=== PATIENT | female | born 1960 | race Caucasian/White ===

== ENCOUNTER 2016-06-01 16:02 | Emergency (ER) | payer BC, OTHER ==
[~2016-06-01] VITALS: Ht 154.9 cm; Wt 82.2 kg
[~2016-06-01 16:02] MED LIST: CIPR-255 PO; FLUO20CA35 PO
[2016-06-01 16:05] VITALS: TEMP 36.3; Ht 154.9 cm; Wt 82.2 kg
[2016-06-01] MEDS ORDERED: MoRPHine SULFATE 10 MG/ML CARP/VIAL IM STA (16:26)
[2016-06-01] MEDS ORDERED: ONDANSETRON 4MG OD TAB PO ONE (16:30)
[2016-06-01] MEDS ORDERED: DEXAMETHASONE SOD INJ 10 MG/ML VIAL IM ONE (16:30)
[2016-06-01] MEDS ORDERED: MoRPHine SULFATE 2 MG/ML CARP ONE (16:35)
[2016-06-01] MEDS ORDERED: MoRPHine SULFATE 4 MG/ML 1 ML CARP\\VIAL ONE (16:36)
[2016-06-01] MEDS ORDERED: TRAM-10 PO (16:38)
--- NOTE | 2016-06-01 16:39 | EMERGENCY ROOM VISIT NOTE ---
History First contact with patient: 16:15 Chief Complaint: HIP PAIN Stated Complaint: SYACTIC, EXTREME PAIN L/R HIP/UPPER BACK History of Present Illness The patient is a 56 year old female who presents to the Emergency Room with complaints of low back pain. The patient has had ongoing low back pain and sciatica. The patient states that it has been ongoing. She has seen Dr. Fierro and had an epidural injection which did not help. She was to schedule a second injection but could not because of the bad weather. The patient states that she does not have any true change in her symptoms but the pain persists and is affecting her activities of daily living. She has had tramadol which is not helping. The patient had an MRI approximately 2.5 months ago and revealed stenosis and DJD. The patient has some numbness in the left leg and states that is not changed. She rates her discomfort a 9/10. She has not had any loss of bowel or bladder control. She has not had any weakness in her legs. Review of Systems A 10 system review of systems was completed with positives and pertinent negatives listed in the HPI. Past Medical/Surgical History Medical Problems: (1) Depression (2) Pneumonia Surgical Problems: (1) H/O gastric bypass Family History Cancer Diabetes mellitus Gallbladder disease Heart disease Hypertension Kidney disease Kidney stones Lung disease Social History Smoking Status: Never Smoker Alcohol Use: other Marital Status: Housing Status: lives with significant other Occupation Status: unemployed Current/Historical Medications Scheduled Fish Oil ([place]-3), 3 CAPSULES PO DAILY Fluoxetine (Prozac), 20 MG PO DAILY Levothyroxine Sodium (Levothyroxine Sodium), 50 MCG PO DAILY Pediatric Multiple Vitamin W/ (Flintstones Chewable), 2 TABS PO DAILY Prednisone (Prednisone), 0 PO DAILY Topiramate (Topamax), 50 MG PO BID Scheduled PRN Acetaminophen (Tylenol), 1,000 MG PO Q6 PRN for Pain Clonazepam (Clonazepam), 0.5 MG PO BID PRN for Anxiety Oxycodone/Acetaminophen 5MG/325MG (Percocet 5MG/325MG), 1-2 TABS PO Q4 PRN for Pain Tramadol (Ultram), 50 MG PO Q6H PRN for Pain Allergies Coded Allergies: No Known Allergies (Verified , 06/01/16) Physical Exam Vital Signs Date Time Temp Pulse Resp B/P Pulse Ox O2 Delivery O2 Flow Rate FiO2 06/01/16 17:16 65 16 118/76 97 06/01/16 16:59 65 16 118/76 97 Room Air 06/01/16 16:05 36.3 70 17 121/72 99 Room Air Physical Exam VITALS: Vitals are noted on the nurse's note and reviewed by myself. Vital signs stable. Patient is afebrile. GENERAL: This is a 56-year-old female, in no acute distress, nondiaphoretic, well-developed well-nourished. SKIN: The skin was without rashes, erythema, edema, or bruising. There is no tenting of the skin. Capillary reflex less than 2 seconds. HEAD: Normocephalic atraumatic. EARS: External ears are normal in appearance. EYES: Pupils equal round and reactive to light and accommodation. Conjunctivae without injection, sclerae without icterus. Extraocular movements intact. NOSE: Patent, turbinates without inflammation or discharge. MOUTH: Mucous membranes moist. Tonsils are not enlarged. Pharynx without erythema or exudate. Uvula midline. Airway patent. Tongue does not deviate. NECK: Supple without nuchal rigidity. Cervical spine is nontender. No JVD. HEART: Regular rate and rhythm without murmurs gallops or rubs. LUNGS: Clear to auscultation bilaterally without wheezes, rales or rhonchi. No retractions or accessory muscle use. ABDOMEN: Positive bowel sounds x 4. Soft, nontender, without masses or organomegaly. Moreno sign negative. MUSCULOSKELETAL: No muscle atrophy, erythema, or edema noted. Full range of motion in all extremities. No tenderness to palpation. Normal gait. Strength 5/5 throughout. NEURO: Patient was alert and oriented to person place and time. Normal sensation to light and sharp touch. Deep tendon reflexes 2+ throughout. No focal neurological deficits. Medical Decision & Procedures Medications Administered Medications (Trade) Dose Ordered Sig/Krystle Route Start Time Stop Time Status Last Admin Dose Admin Dexamethasone Sodium Phosphate (Decadron Inj) 10 mg NOW ONCE IM 06/01/16 16:30 06/01/16 16:38 DC 06/01/16 16:41 10 MG Morphine Sulfate (MoRPHine SULFATE INJ) 6 mg NOW STAT IM 06/01/16 16:26 06/01/16 16:28 DC 06/01/16 16:42 6 MG Ondansetron HCl (Zofran Odt) 4 mg ONE ONCE PO 06/01/16 16:30 06/01/16 16:38 DC 06/01/16 16:40 4 MG ED Course The patient was seen and examined. Previous visits were reviewed. The patient does not have a fever. The patient has had ongoing low back pain with radiation to the left leg. She has had MRIs. She has had physical therapy and seen Dr. fierro. The patient's pain persists and she has taken tramadol without relief. The patient states she has never been trialed on prednisone. The patient was given 10 mg IM Decadron and 4 mg IM morphine with improvement in her pain. She'll be given a prescription for pain medication and prednisone. She should contact Dr. fierro office first thing in the morning to schedule a follow-up appointment. She should return to the ER sooner with any worsening symptoms. Medical Decision DIFFERENTIAL DIAGNOSIS: Lumbar strain, degenerative disc disease, spondylolisthesis, herniated disc, spinal stenosis, osteoporosis, fracture, cauda equina syndrome, neoplasm, infection, inflammatory arthritis, among others. [place] Drug Monitoring Program Search Results: patient reviewed within database, no issues identified Impression Primary Impression: Back pain with sciatica Departure Information Dispostion Home / Self-Care Condition GOOD Prescriptions Oxycodone/Acetaminophen 5MG/325MG (PERCOCET 5MG/325MG) Tab 1-2 TABS PO Q4 Y for Pain, #30 TAB For Initial Treatment Prov: Norma Olvera PA-C 06/01/16 Prednisone (Prednisone) 20 Mg Tab 0 PO DAILY, #18 TAB 3 DAILY FOR 3 DAYS, THEN 2 DAILY FOR 3 DAYS, THEN 1 DAILY FOR 3 DAYS. Prov: Norma Olvera PA-C 06/01/16 Referrals Servando Galvan M.D. (PCP) Laz Fierro D.O. Patient Instructions Back Pain - [facility] Additional Instructions Prednisone as prescribed, until finished Percocet 1-2 tablet every 4-6 hours as needed for worse pain. No driving or alcohol use with Percocet and do not take with Tylenol. Contact Dr. fierro first thing in the morning to schedule a follow-up appointment for further evaluation and management Return with any worsening symptoms
[2016-06-01] MEDS ORDERED: OXYC-57 PO (16:55)
[2016-06-01] MEDS ORDERED: PRED20TA PO (16:55)
[2016-06-01 17:16] VITALS: BP 118/76; PULSE 65; O2SAT 97
[2016-08-28] MEDS ORDERED: FLUO40CA8 PO (18:50)
[2016-08-28] MEDS ORDERED: OXYC1TAB3 PO (19:05)
[2016-08-28] MEDS ORDERED: METH4PAK PO (19:05)
[2016-11-02] MEDS ORDERED: KLN5X PO (04:25)
[2016-11-02] MEDS ORDERED: TPM/50 PO (04:25)
[2016-11-02] MEDS ORDERED: ACET-1256 PO (04:26)
[2016-11-02] MEDS ORDERED: PEDICHW50 PO (16:38)
[2016-11-02] MEDS ORDERED: LEVO50TA6 PO (16:38)
== END 2016-06-01 17:16 | disposition home or self-care (01) ==
LOC: C.EDB 16:04 → C.EDD 17:16
DX: M53.3 Sacrococcygeal disorders, not elsewhere classified (principal); F32.9 Major depressive disorder, single episode, unspecified; Z98.84 Bariatric surgery status; Z79.899 Other long term (current) drug therapy; Z80.9 Family history of malignant neoplasm, unspecified; Z83.3 Family history of diabetes mellitus; Z83.79 Family history of other diseases of the digestive system; Z82.49 Family history of ischemic heart disease and other diseases of the circulatory system; Z84.1 Family history of disorders of kidney and ureter

== ENCOUNTER 2016-11-02 20:23 | Emergency (ER) | payer BC ==
[~2016-11-02] VITALS: Ht 154.9 cm; Wt 80.0 kg
[~2016-11-02 20:23] MED LIST changes: +ACET-1256 PO; -CIPR-255 PO; -FLUO20CA35 PO; +FLUO40CA8 PO; +KLN5X PO; +LEVO50TA6 PO; +OXYC1TAB3 PO; +PEDICHW50 PO; +TPM/50 PO; +TRAM-10 PO
[2016-11-02 20:26] VITALS: Ht 154.9 cm; Wt 80.0 kg
[2016-11-02] MEDS ORDERED: ONDANSETRON INJ 2 MG/ML 2 ML VIAL IV STA (21:03)
--- NOTE | 2016-11-02 21:03 | EMERGENCY ROOM VISIT NOTE ---
History First contact with patient: 20:42 Chief Complaint: CHEST PAIN Stated Complaint: CHEST PAIN, LEFT ARM PAIN, VOMITING Nursing Triage Summary: pt to the ED with c/o chest pain that goes to her back and left arm with n/v SOB and numbness in her face History of Present Illness The patient is a 56 year old female who presents to the Emergency Room with complaints of a one day history of chest pain. Patient was at home yesterday at approximately 12 PM when she was doing work in her garden doing some heavy lifting and felt some instant chest pain. She says the chest pain was 10 out of 10, over the left side of the chest lateral to the sternum the over the superomedial aspect of the breast, and radiated to her back. She states that she was able to go to work the rest of the day but continued to feel fatigued, nauseous, had a migraine, and did not feel like herself throughout the day. 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 Immediately upon arriving at work she began to feel worse with continued chest pain, and now it continues to be 10/10, sharp pain, radiating to the back. She also complains of left arm numbness and tingling. She states that the pain is worse with exertion and is worse when sitting upright. The patient is concerned because she has a family history of cardiac disease in both her mother and sister. She denies any fever, chills, vomiting, or abdominal pain. Review of Systems See HPI for pertinent positives and negatives. A total of ten systems were reviewed and were otherwise negative. Past Medical/Surgical History Medical Problems: (1) Depression (2) Pneumonia Surgical Problems: (1) H/O gastric bypass Family History Cancer Diabetes mellitus Gallbladder disease Heart disease Hypertension Kidney disease Kidney stones Lung disease Social History Smoking Status: Never Smoker Alcohol Use: other Marital Status: Housing Status: lives with significant other Occupation Status: unemployed Current/Historical Medications Scheduled Fish Oil ([place]-3), 3 CAPSULES PO DAILY Fluoxetine Hcl (Prozac), 40 MG PO DAILY Levothyroxine Sodium (Levothyroxine Sodium), 50 MCG PO DAILY Pediatric Multiple Vitamin W/ (Flintstones Chewable), 2 TABS PO DAILY Topiramate (Topamax), 50 MG PO BID Scheduled PRN Acetaminophen (Tylenol), 1,000 MG PO Q6H PRN for Pain Clonazepam (Clonazepam), 0.5 MG PO BID PRN for Anxiety Tramadol HCl (Tramadol HCl), 50 MG PO Q6H PRN for Pain Allergies Coded Allergies: No Known Allergies (Verified , 08/28/16) Physical Exam Vital Signs Date Time Temp Pulse Resp B/P (MAP) Pulse Ox O2 Delivery O2 Flow Rate FiO2 11/02/16 21:20 59 18 122/76 96 Room Air 11/02/16 20:48 70 11/02/16 20:26 36.4 74 16 156/95 95 Room Air Physical Exam GENERAL: Awake, alert, well-appearing, in mild distress HENT: Normocephalic, atraumatic. Oropharynx unremarkable. EYES: Normal conjunctiva. Sclera non-icteric. NECK: Supple. No nuchal rigidity. RESPIRATORY: Clear to auscultation. CARDIAC: Regular rate, normal rhythm. Extremities warm and well perfused. Pulses equal. ABDOMEN: Soft, non-distended. No tenderness to palpation. No rebound or guarding. No masses. RECTAL: Deferred. MUSCULOSKELETAL: Chest examination reveals tenderness to palpation over the left side of the chest lateral to the sternum and over the medial side of the left breast. There is also point tenderness over the left scapula. LOWER EXTREMITIES: Calves are equal size bilaterally and non-tender. No edema. No discoloration. NEURO: Normal sensorium. No sensory or motor deficits noted. SKIN: No rash or jaundice noted. Medical Decision & Procedures Laboratory Results 11/02/16 20:40 Red Blood Count 4.72, Mean Corpuscular Volume 88.1, Mean Corpuscular Hemoglobin 30.1, Mean Corpuscular Hemoglobin Concent 34.1, Mean Platelet Volume 10.1, Neutrophils (%) (Auto) 50.6, Lymphocytes (%) (Auto) 38.1, Monocytes (%) (Auto) 7.9, Eosinophils (%) (Auto) 3.1, Basophils (%) (Auto) 0.3, Neutrophils # (Auto) 2.89, Lymphocytes # (Auto) 2.18, Monocytes # (Auto) 0.45, Eosinophils # (Auto) 0.18, Basophils # (Auto) 0.02 Test 11/02/16 20:40 11/02/16 21:03 White Blood Count 5.72 K/uL (4.8-10.8) Red Blood Count 4.72 M/uL (4.2-5.4) Hemoglobin 14.2 g/dL (12.0-16.0) Hematocrit 41.6 % (37-47) Mean Corpuscular Volume 88.1 fL (80-100) Mean Corpuscular Hemoglobin 30.1 pg (25-34) Mean Corpuscular Hemoglobin Concent 34.1 g/dl (32-36) Platelet Count 230 K/uL (130-400) Mean Platelet Volume 10.1 fL (7.4-10.4) Neutrophils (%) (Auto) 50.6 % Lymphocytes (%) (Auto) 38.1 % Monocytes (%) (Auto) 7.9 % Eosinophils (%) (Auto) 3.1 % Basophils (%) (Auto) 0.3 % Neutrophils # (Auto) 2.89 K/uL (1.4-6.5) Lymphocytes # (Auto) 2.18 K/uL (1.2-3.4) Monocytes # (Auto) 0.45 K/uL (0.11-0.59) Eosinophils # (Auto) 0.18 K/uL (0-0.5) Basophils # (Auto) 0.02 K/uL (0-0.2) RDW Standard Deviation 42.5 fL (36.4-46.3) RDW Coefficient of Variation 13.1 % (11.5-14.5) Immature Granulocyte % (Auto) 0.0 % Immature Granulocyte # (Auto) 0.00 K/uL (0.00-0.02) Creatine Kinase MB 1.4 ng/ml (0.5-3.6) Troponin I < 0.015 ng/ml (0-0.045) Creatine Kinase MB Ratio (0-3.0) Medications Administered Medications (Trade) Dose Ordered Sig/Krystle Route Start Time Stop Time Status Last Admin Dose Admin Miscellaneous Medication (Gi Cocktail) 24 ml ONE ONCE PO 11/02/16 21:15 11/02/16 21:16 DC 11/02/16 21:23 24 ML Ondansetron HCl (Zofran Inj) 4 mg NOW STAT IV 11/02/16 21:03 11/02/16 21:12 DC 11/02/16 21:23 4 MG Al Hydroxide/Mg Hydroxide (Maalox Susp) 30 ml STK-MED ONCE .ROUTE 11/02/16 21:17 11/02/16 21:18 DC 11/02/16 21:23 30 ML Lidocaine HCl (Viscous Lidocaine 2% Soln) 20 ml STK-MED ONCE .ROUTE 11/02/16 21:18 11/02/16 21:19 DC 11/02/16 21:23 20 ML Medical Decision Patient is a 56 year old female that presents with a 1 day history of chest pain Etiologies such as cardiac ischemia, pneumonia, pneumothorax, musculoskeletal, infections, gastrointestinal, as well as others were entertained. Labs: CBC, Troponin, CKMB Imaging: Chest X-Ray EKG Medications: Zofran, GI Cocktail Impression Primary Impression: Chest pain Patient is a 56 year old male that presents with a 1 day history of chest pain - EKG, Troponin, CKMB, CBC, and CXR are all wnl with no acute abnormalities - Patient states that pain has improved with Tylenol Departure Information Dispostion Home / Self-Care Condition GOOD Referrals Servando Galvan M.D. (PCP) Forms HOME CARE DOCUMENTATION FORM, IMPORTANT VISIT INFORMATION, Work Instructions Return To Work: 1 day Patient Instructions My [facility] [employer] Additional Instructions Acetaminophen(Tylenol) may be used for fever or pain. Use 1000mg every six hours as needed. Avoid using more than 4000mg in a 24 hour period. Rest and drink plenty of fluids as tolerated. Continue current medications. Avoid strenuous activities and anything that worsens your pain. Resume normal activities once your symptoms resolve. Return to the ER immediately for worsening or persistent chest pain, abdominal pain, vomiting, fevers, chest pains, difficulty breathing, worsening of your condition, or as needed. Follow up with your primary physician in 2-3 days for a recheck of your current condition. Problem Qualifiers Primary Impression: Chest pain Chest pain type: unspecified Qualified Codes: R07.9 - Chest pain, unspecified
[2016-11-02] MEDS ORDERED: PRZ/40 PO (21:04)
[2016-11-02] MEDS ORDERED: ULT50 PO (21:04)
[2016-11-02] MEDS ORDERED: GI COCKTAIL PO ONE (21:15)
[2016-11-02] MEDS ORDERED: ALUMINUM/MAGNESIUM SUSP 30 ML UDC ONE (21:17)
[2016-11-02] MEDS ORDERED: LIDOCAINE HCL 2% VISC SOLN 20 ML UDC ONE (21:18)
--- NOTE | 2016-11-02 21:37 | DIAGNOSTIC IMAGING REPORT ---
CHEST ONE VIEW PORTABLE CLINICAL HISTORY: Atypical chest pain COMPARISON STUDY: 04/17/2014 FINDINGS: The cardiac and mediastinal contours are normal. There is no evidence of focal pulmonary consolidation. There is no evidence of failure. No pleural effusions are visualized.[ No pneumothorax is visualized. IMPRESSION: No active disease in the chest. Electronically signed by: Benedicto Guillen M.D. 11/02/2016 9:36 PM Dictated Date/Time: 11/02/2016 9:35 PM
[2016-11-02 22:12] LABS: BASO % 0.3 %; BASO ABS # 0.02 K/uL (0-0.2); COMPLETE YES; EOS % 3.1 %; HEMATOCRIT 41.6 % (37-47); LYMPH % 38.1 %; LYMPH ABS # 2.18 K/uL (1.2-3.4); MEAN CELL VOLUME 88.1 fL (80-100); MEAN CORPUSCULAR HEMOGLOBIN 30.1 pg (25-34); MEAN CORPUSCULAR HGB CONC 34.1 g/dl (32-36); MEAN PLATELET VOLUME 10.1 fL (7.4-10.4); MONO % 7.9 %; NEUT % 50.6 %; PLATELET COUNT 230 K/uL (130-400); RED BLOOD COUNT 4.72 M/uL (4.2-5.4); WHITE BLOOD COUNT 5.72 K/uL (4.8-10.8)
[2016-11-02] MEDS ORDERED: ACETAMINOPHEN 500 MG TAB PO STA (22:20)
--- NOTE | 2016-11-02 23:24 | EMERGENCY ROOM VISIT NOTE ---
ED Visit Note First contact with patient: 20:42 Resident Physician Supervision Note: I interviewed and examined the patient. Discussed with Dr. ADAMS and agree with findings and plan as documented in the note. Any exceptions or clarifications are listed here: [None] The patient has reproducible chest wall pain. She has a normal EKG and cardiac enzymes. I do not believe the patient has a cardiopulmonary cause for her pain. More likely this is musculoskeletal in nature. Documented By: Jose Francisco Thomas
[2016-11-02 23:32] VITALS: BP 114/68; PULSE 62; TEMP 36.4; O2SAT 98
[2016-11-02] MEDS ORDERED: OMEG10007 PO (23:45)
== END 2016-11-02 23:32 | disposition home or self-care (01) ==
LOC: C.EDB 20:24 → C.EDA 23:32
DX: R07.9 Chest pain, unspecified (principal); F32.9 Major depressive disorder, single episode, unspecified; Z87.01 Personal history of pneumonia (recurrent); Z98.84 Bariatric surgery status; Z80.9 Family history of malignant neoplasm, unspecified; Z83.3 Family history of diabetes mellitus; Z82.49 Family history of ischemic heart disease and other diseases of the circulatory system; Z84.1 Family history of disorders of kidney and ureter; Z79.899 Other long term (current) drug therapy

== ENCOUNTER 2017-06-06 01:41 | Emergency (ER) | payer BC, OTHER ==
[~2017-06-06] VITALS: Ht 157.5 cm; Wt 79.6 kg
[~2017-06-06 01:41] MED LIST changes: -FLUO40CA8 PO; +OMEG10007 PO; -OXYC1TAB3 PO; +PRZ/40 PO; -TRAM-10 PO; +ULT50 PO
[2017-06-06 01:43] VITALS: Ht 157.5 cm; Wt 79.6 kg
[2017-06-06] MEDS ORDERED: HYCODAN 60ML BOTTLE HOMEPACK PO ONE (02:15)
[2017-06-06 02:47] LABS: INFLUENZA B ANTIGEN Neg for Influ B (NEG)
--- NOTE | 2017-06-06 03:37 | EMERGENCY ROOM VISIT NOTE ---
History First contact with patient: 01:51 Chief Complaint: FLU LIKE SX Stated Complaint: COUGH,TEMP,RUNNING NOSE,HARRISON,CONGESTION,WEAK, History of Present Illness The patient is a 57 year old female who presents to the Emergency Room with complaints of flulike symptoms which began yesterday and worsened today. The patient reports that she has had a fever up to 103.5F, cough, headache, ear pain, sore throat and nasal congestion. She also reports body aches. She has been taking Sudafed without improvement of symptoms. She rates her overall discomfort in 12/07. She denies any recent sick contacts. She denies any past medical problems. Review of Systems A complete 10 point review of systems was reviewed with the patient with pertinent positives and negatives as per history of present illness. All else were negative. Past Medical/Surgical History Medical Problems: (1) Depression (2) Pneumonia Surgical Problems: (1) H/O gastric bypass Family History Cancer Diabetes mellitus Gallbladder disease Heart disease Hypertension Kidney disease Kidney stones Lung disease Social History Smoking Status: Former Smoker Alcohol Use: other Marital Status: Housing Status: lives with significant other Occupation Status: unemployed Current/Historical Medications Scheduled Fish Oil ([place]-3), 3 CAPSULES PO DAILY Fluoxetine Hcl (Prozac), 40 MG PO DAILY Levothyroxine Sodium (Levothyroxine Sodium), 50 MCG PO DAILY Pediatric Multiple Vitamin W/ (Flintstones Chewable), 2 TABS PO DAILY Topiramate (Topamax), 50 MG PO BID Scheduled PRN Acetaminophen (Tylenol), 1,000 MG PO Q6H PRN for Pain Clonazepam (Clonazepam), 0.5 MG PO BID PRN for Anxiety Tramadol HCl (Tramadol HCl), 50 MG PO Q6H PRN for Pain Physical Exam Vital Signs Date Time Temp Pulse Resp B/P (MAP) Pulse Ox O2 Delivery O2 Flow Rate FiO2 06/06/17 03:43 36.4 70 20 138/65 99 Room Air 06/06/17 01:43 36.5 77 20 127/78 100 Room Air Physical Exam VITALS: Vitals are noted on the nurse's note and reviewed by myself. Vital signs stable. GENERAL: This is a 57-year-old female, in no acute distress, nondiaphoretic, well-developed well-nourished. SKIN: The skin was without rashes. EARS: External auditory canals clear. Bilateral tympanic membranes mildly injected. No effusions. EYES: Pupils equal round and reactive to light and accommodation. NOSE: Patent, turbinates without inflammation or discharge. No sinus tenderness. MOUTH: Mucous membranes moist. Tonsils are not enlarged. Pharynx without erythema or exudate. NECK: Supple without nuchal rigidity. No lymphadenopathy. HEART: Regular rate and rhythm without murmurs gallops or rubs. LUNGS: Clear to auscultation bilaterally without wheezes, rales or rhonchi. No retractions or accessory muscle use. ABDOMEN: Positive bowel sounds x 4. Soft, nontender to palpation. NEURO: Patient was alert and oriented to person place and time. Medical Decision & Procedures ER Provider Diagnostic Interpretation: CHEST X-RAY: No acute cardiopulmonary disease. Laboratory Results Test 06/06/17 02:10 Influenza Type A Antigen Neg for Influ A (NEG) Influenza Type B Antigen Neg for Influ B (NEG) Medications Administered Medications (Trade) Dose Ordered Sig/Krystle Route Start Time Stop Time Status Last Admin Dose Admin Hydrocodone Bit/ Homatropine Methylb (Hycodan Elix Homepack 5/1.5MG/ 5ML) 1 homepack UD ONCE PO 06/06/17 02:15 06/06/17 02:16 DC 06/06/17 02:22 1 HOMEPACK Medical Decision Differential diagnosis includes influenza, upper respiratory infection, pneumonia, flulike illness, among others. The patient is a 57-year-old female who presents today complaining of flulike symptoms. Labs revealed a negative rapid influenza test. Chest x-ray showed no evidence of pneumonia. Patient's vital signs within normal limits. She was counseled regarding conservative treatments for her viral illness. She will follow-up with her primary care provider as an outpatient for further evaluation. She verbalized understanding of my assessment and treatment plan and was discharged home in good condition. Medication Reconcilliation Current Medication List: was personally reviewed by me Blood Pressure Screening Patient's blood pressure: Normal blood pressure Impression Primary Impression: Influenza-like symptoms Departure Information Dispostion Home / Self-Care Condition GOOD Referrals Servando Galvan M.D. (PCP) Patient Instructions My [facility] Additional Instructions Rapid influenza test today was negative. Your symptoms are likely due to a viral flulike illness. For pain/fever control, you can use the following [id number] medicines ( if >12 yo): - Regular strength (325mg/tab) Tylenol (acetaminophen) 2 tabs every 4-6 hours as needed. Do not exceed 12 tablets in a 24 hour period. Avoid taking more than 4 grams (4000 mg) of Tylenol per day. This includes any other sources of acetaminophen you may take on a regular basis. - Regular strength (200 mg/tab) Advil (ibuprofen) 3-4 tabs every 4-6 hours as needed. Do not exceed a dose of 3200 mg per day. Rest and drink plenty of fluids. Take the cough syrup, 5 mL every 6 hours as needed for severe coughing. The aware that this medication is a narcotic and will make you drowsy. You should not drive or drink alcohol taking this medication. Follow-up with your primary care provider for recheck. Return to the emergency department with worsening or new/concerning symptoms.
[2017-06-06 03:43] VITALS: BP 138/65; PULSE 70; TEMP 36.4; O2SAT 99
--- NOTE | 2017-06-06 06:38 | DIAGNOSTIC IMAGING REPORT ---
CHEST ONE VIEW PORTABLE CLINICAL HISTORY: cough, fever COMPARISON STUDY: 11/02/2016 FINDINGS: The cardiac and mediastinal contours are normal. There is no evidence of focal pulmonary consolidation. There is no evidence of failure. No pleural effusions are visualized.[ There is an old left clavicular fracture. IMPRESSION: No active disease in the chest. Electronically signed by: Benedicto Guillen M.D. 06/06/2017 6:37 AM Dictated Date/Time: 06/06/2017 6:37 AM
== END 2017-06-06 03:47 | disposition home or self-care (01) ==
LOC: C.EDB 01:43
DX: R50.9 Fever, unspecified (principal); R51 Headache; J02.9 Acute pharyngitis, unspecified; H92.09 Otalgia, unspecified ear; R09.81 Nasal congestion; M79.1 Myalgia; F32.9 Major depressive disorder, single episode, unspecified; Z98.84 Bariatric surgery status; Z87.891 Personal history of nicotine dependence; Z83.3 Family history of diabetes mellitus; Z84.1 Family history of disorders of kidney and ureter; Z82.49 Family history of ischemic heart disease and other diseases of the circulatory system

== ENCOUNTER 2017-06-13 01:55 | Emergency (ER) | payer OTHER ==
[~2017-06-13] VITALS: Ht 165.1 cm; Wt 82.0 kg
[2017-06-13 02:01] VITALS: TEMP 37.1; Ht 165.1 cm; Wt 82.0 kg
[2017-06-13] MEDS ORDERED: SODIUM CHLORIDE 0.9% 500ML 500 ML IV STA (02:02)
[2017-06-13 02:25] LABS: BASO % 0.2 %; BASO ABS # 0.02 K/uL (0-0.2); EOS % 2.4 %; EOS ABS # 0.21 K/uL (0-0.5); HEMATOCRIT 39.5 % (37-47); HEMOGLOBIN 13.7 g/dL (12.0-16.0); IG# 0.02 K/uL (0.00-0.02); LYMPH % 22.1 %; LYMPH ABS # 1.93 K/uL (1.2-3.4); MEAN CELL VOLUME 87.6 fL (80-100); MEAN CORPUSCULAR HEMOGLOBIN 30.4 pg (25-34); MEAN CORPUSCULAR HGB CONC 34.7 g/dl (32-36); MEAN PLATELET VOLUME 9.7 fL (7.4-10.4); MONO % 12.6 %; NEUT % 62.5 %; NEUT ABS # 5.45 K/uL (1.4-6.5); PLATELET COUNT 243 K/uL (130-400); RED CELL DISTRIBUTION WIDTH CV 13.2 % (11.5-14.5); RED CELL DISTRIBUTION WIDTH SD 42.5 fL (36.4-46.3); WHITE BLOOD COUNT 8.73 K/uL (4.8-10.8)
[2017-06-13 02:35] LABS: PTT PATIENT 26.1 SECONDS (21.0-31.0)
[2017-06-13 02:53] LABS: ALBUMIN 3.7 gm/dl (3.4-5.0); ALKALINE PHOSPHATASE 91 U/L (45-117); ALT/SGPT 29 U/L (12-78); BLOOD UREA NITROGEN 19 mg/dl (7-18); CALCIUM 9.2 mg/dl (8.5-10.1); CARBON DIOXIDE 23 mmol/L (21-32); GLUCOSE 100 mg/dl (70-99); LIPASE 311 U/L (73-393); TOTAL PROTEIN 7.3 gm/dl (6.4-8.2)
[2017-06-13 02:56] LABS: POTASSIUM 3.6 mmol/L (3.5-5.1); SODIUM 137 mmol/L (136-145)
[2017-06-13 03:14] LABS: AST/SGOT 26 U/L (15-37)
[2017-06-13] MEDS ORDERED: AMOXICILLIN/CLAVULANATE TAB 875 MG TAB PO ONE (03:15)
--- NOTE | 2017-06-13 03:59 | EMERGENCY ROOM VISIT NOTE ---
History First contact with patient: 02:01 Chief Complaint: UNRESPONSIVE Stated Complaint: UNRESPONSIVE Nursing Triage Summary: patient pulled from car, very lethargic and weak, unable to speak clearly. friend states they were on way home from work, she was driving and stated "I see the light" to the friend and then stated she couldnt drive so she pulled over and her and the friend switched spots in the car. History of Present Illness The patient is a 57 year old female who presents to the Emergency Room with complaints of confusion episode tonight. Patient states she was driving home and then saw margot as she thought she was going to . She had someone else in the passenger seat. She pulled over and he drove her to the hospital. Patient states she does not really recall what happened but felt and now feels better. Patient states she still feels slightly confused. She has been taking some [id number] cold medicine. Patient has had a cold with cough and congestion for the past week. Patient denies chest pain, dyspnea, fever, chills , abdominal pain, headache, neck stiffness, drug abuse, alcohol use. She states she has been taking some Aleve and adin-zqt-hcitaqr cold and flu medicine. She states she has not had any recent Ultram. Patient states she has not overdosed on anything either. Patient denies suicidal or homicidal ideations. When patient initially came in she was confused and unable to initially obtain history. She was slurring her words and incoherent. History is obtained from the coworker who states that she had stated she was seen margot and was going to leave this earth. He made her assembler for puller over hand and he drove her immediately to the hospital. He states he was holding a normal conversation with her prior to this. He states that she has been taking cold medicines with her normal meds but has not had any alcohol or drugs. Review of Systems An 10 system review of systems was completed with positives and pertinent negatives listed in the HPI. Past Medical/Surgical History Medical Problems: (1) Depression (2) Pneumonia (3) Syncope Surgical Problems: (1) H/O gastric bypass Family History Cancer Diabetes mellitus Gallbladder disease Heart disease Hypertension Kidney disease Kidney stones Lung disease Social History Smoking Status: Former Smoker Alcohol Use: other Marital Status: Housing Status: lives with significant other Occupation Status: unemployed Current/Historical Medications Scheduled Amoxicillin & Pot Clavulanate (Augmentin 875-125 mg), 1 TAB PO BID Fish Oil (Viola-3), 3 CAPSULES PO DAILY Fluoxetine Hcl (Prozac), 40 MG PO DAILY Levothyroxine Sodium (Levothyroxine Sodium), 50 MCG PO DAILY Pediatric Multiple Vitamin W/ (Flintstones Chewable), 2 TABS PO DAILY Topiramate (Topamax), 50 MG PO BID Scheduled PRN Acetaminophen (Tylenol), 1,000 MG PO Q6H PRN for Pain Clonazepam (Clonazepam), 0.5 MG PO BID PRN for Anxiety Tramadol HCl (Tramadol HCl), 50 MG PO Q6H PRN for Pain Physical Exam Vital Signs Date Time Temp Pulse Resp B/P (MAP) Pulse Ox O2 Delivery O2 Flow Rate FiO2 06/13/17 02:36 65 16 130/98 98 Room Air 06/13/17 02:10 Room Air 06/13/17 02:01 37.1 80 18 150/88 97 Room Air 06/13/17 02:00 87 Physical Exam VITALS: Vitals are noted on the nurse's note and reviewed by myself. Vital signs stable. GENERAL: White female in no acute distress, nondiaphoretic, well-developed well- nourished. SKIN: The skin was without rashes, erythema, edema, or bruising. There is no tenting of the skin. Capillary reflex less than 2 seconds. HEAD: Normocephalic atraumatic. EARS: External auditory canals clear, tympanic membranes pearly vincent without erythema or effusion bilaterally. EYES: Pupils equal round and reactive to light and accommodation. Conjunctivae without injection, sclerae without icterus. Extraocular movements intact. NOSE: Patent, turbinates without inflammation or discharge. Maxillary sinus tenderness. MOUTH: Mucous membranes moist. Pharynx without erythema or exudate. Uvula midline. Airway patent. Tongue does not deviate. NECK: Supple without nuchal rigidity. No lymphadenopathy. No thyromegaly. Cervical spine is nontender. No JVD. HEART: Regular rate and rhythm without murmurs gallops or rubs. LUNGS: Clear to auscultation bilaterally without wheezes, rales or rhonchi. No dullness to percussion. No retractions or accessory muscle use. ABDOMEN: Positive bowel sounds x 4. Normal tympanic percussion. Soft, nontender, without masses or organomegaly. Moreno sign negative. No guarding or rebound tenderness. MUSCULOSKELETAL: No muscle atrophy, erythema, or edema noted. Full range of motion without joint tenderness in all extremities. No tenderness to palpation. Normal gait. Strength 5/5 throughout. NEURO: Patient was alert and oriented to person place and time. Normal sensation to light and sharp touch. Cranial nerves II through XII grossly intact. Cerebellar exam intact. No focal neurological deficits. Medical Decision & Procedures Laboratory Results 06/13/17 02:13 Red Blood Count 4.51, Mean Corpuscular Volume 87.6, Mean Corpuscular Hemoglobin 30.4, Mean Corpuscular Hemoglobin Concent 34.7, Mean Platelet Volume 9.7, Neutrophils (%) (Auto) 62.5, Lymphocytes (%) (Auto) 22.1, Monocytes (%) (Auto) 12.6, Eosinophils (%) (Auto) 2.4, Basophils (%) (Auto) 0.2, Neutrophils # (Auto ) 5.45, Lymphocytes # (Auto) 1.93, Monocytes # (Auto) 1.10, Eosinophils # (Auto ) 0.21, Basophils # (Auto) 0.02 06/13/17 02:13 Test 06/13/17 02:09 06/13/17 02:13 06/13/17 02:15 06/13/17 02:23 Bedside Glucose 101 mg/dl (70-90) White Blood Count 8.73 K/uL (4.8-10.8) Red Blood Count 4.51 M/uL (4.2-5.4) Hemoglobin 13.7 g/dL (12.0-16.0) Hematocrit 39.5 % (37-47) Mean Corpuscular Volume 87.6 fL (80-100) Mean Corpuscular Hemoglobin 30.4 pg (25-34) Mean Corpuscular Hemoglobin Concent 34.7 g/dl (32-36) Platelet Count 243 K/uL (130-400) Mean Platelet Volume 9.7 fL (7.4-10.4) Neutrophils (%) (Auto) 62.5 % Lymphocytes (%) (Auto) 22.1 % Monocytes (%) (Auto) 12.6 % Eosinophils (%) (Auto) 2.4 % Basophils (%) (Auto) 0.2 % Neutrophils # (Auto) 5.45 K/uL (1.4-6.5) Lymphocytes # (Auto) 1.93 K/uL (1.2-3.4) Monocytes # (Auto) 1.10 K/uL (0.11-0.59) Eosinophils # (Auto) 0.21 K/uL (0-0.5) Basophils # (Auto) 0.02 K/uL (0-0.2) RDW Standard Deviation 42.5 fL (36.4-46.3) RDW Coefficient of Variation 13.2 % (11.5-14.5) Immature Granulocyte % (Auto) 0.2 % Immature Granulocyte # (Auto) 0.02 K/uL (0.00-0.02) Prothrombin Time 10.0 SECONDS (9.0-12.0) Prothromb Time International Ratio 1.0 (0.9-1.1) Activated Partial Thromboplast Time 26.1 SECONDS (21.0-31.0) Partial Thromboplastin Ratio 1.0 Anion Gap 11.0 mmol/L (3-11) Est Creatinine Clear Calc Drug Dose 55.4 ml/min Estimated GFR () 58.5 Estimated GFR (Non- 50.5 BUN/Creatinine Ratio 16.0 (10-20) Osmolality 289 mOsm/kg (280-300) Calcium Level 9.2 mg/dl (8.5-10.1) Magnesium Level 2.4 mg/dl (1.8-2.4) Total Bilirubin 0.9 mg/dl (0.2-1) Direct Bilirubin 0.2 mg/dl (0-0.2) Aspartate Amino Transf (AST/SGOT) 26 U/L (15-37) Alanine Aminotransferase (ALT/SGPT) 29 U/L (12-78) Alkaline Phosphatase 91 U/L (45-117) Total Creatine Kinase 260 U/L (26-192) Troponin I < 0.015 ng/ml (0-0.045) Total Protein 7.3 gm/dl (6.4-8.2) Albumin 3.7 gm/dl (3.4-5.0) Lipase 311 U/L (73-393) Thyroid Stimulating Hormone (TSH) 9.540 uIu/ml (0.300-4.500) Salicylates Level < 1.7 mg/dl (2.8-20) Acetaminophen Level < 2 ug/ml (10-30) Ethyl Alcohol mg/dL < 3.0 mg/dl (0-3) Urine Color YELLOW Urine Appearance CLEAR (CLEAR) Urine pH 6.5 (4.5-7.5) Urine Specific [place] 1.007 (1.000-1.030) Urine Protein NEG (NEG) Urine Glucose (UA) NEG (NEG) Urine Ketones 1+ (NEG) Urine Occult Blood NEG (NEG) Urine Nitrite NEG (NEG) Urine Bilirubin NEG (NEG) Urine Urobilinogen NEG (NEG) Urine Leukocyte Esterase TRACE (NEG) Urine WBC (Auto) 1-5 /hpf (0-5) Urine RBC (Auto) 0-4 /hpf (0-4) Urine Hyaline Casts (Auto) 1-5 /lpf (0-5) Urine Epithelial Cells (Auto) 10-20 /lpf (0-5) Urine Bacteria (Auto) NEG (NEG) Urine Opiates Screen NEG (NEG) Urine Methadone, Qualitative NEG (NEG) Urine Barbiturates NEG (NEG) Urine Phencyclidine (PCP) Level NEG (NEG) Ur Amphetamine/Methamphetamine NEG (NEG) MDMA (Ecstasy) Screen NEG (NEG) Urine Benzodiazepines Screen NEG (NEG) Urine Cocaine Metabolite NEG (NEG) Urine Marijuana (THC) NEG (NEG) Bedside Troponin I < 0.030 ng/ml (0-0.045) Medications Administered Medications (Trade) Dose Ordered Sig/Krystle Route Start Time Stop Time Status Last Admin Dose Admin Sodium Chloride 500 ml @ 999 mls/hr Q31M STAT IV 06/13/17 02:02 06/13/17 02:32 DC 06/13/17 02:40 999 MLS/HR Amoxicillin/ Clavulanate Potassium (Augmentin Tab) 875 mg ONE ONCE PO 06/13/17 03:15 06/13/17 03:16 DC 06/13/17 04:01 875 MG ED Course Prior records/ancillary studies reviewed and summarized above. Nursing notes reviewed. Additional history obtained from family/friend. The patient's history was concerning for altered mental status. Differential diagnosis: Etiologies such as psychosis, side effect of polypharmacy, metabolic, infection , hypoglycemia, electrolyte abnormalities, cardiac sources, intracerebral event , toxicologic, neurologic, as well as others were entertained. Physical examination: As above. ER treatment provided: IV Lock Normal saline Augmentin for sinusitis On reassessment the patients mental status improved. Diagnostics interpretation by me: ECG: Normal sinus, normal intervals, no acute ST-T wave changes, poor baseline. Impression normal sinus rhythm interpreted by myself The labs revealed slightly elevated TSH. Negative drug screen. Imaging studies: Chest x-ray with no acute consolidation, pneumothorax or free of my interpretation CT HEAD: Comparison: CT head 12/11/15. No ICH, mass effect, or edema. No skull fracture. Right ethmoid and right maxillary sinusitis, new from prior exam. Clear mastoid air cells. Radiologist: Joel Nunez M.D. Given the above diagnostic work-up and treatment, this episode appears to be consistent with confusion episode that is now resolved with sinusitis.. Further treatment will be required. Medicine was consulted but patient refused admission. Patient understands she is at risk for infection, neurological problems and or . Patient started to yell and scream and use profanities at me stating that she is not a drug seeker and is going to nikko me and this whole hospital. She states she does not appreciate being treated like a drug addict and states that the admitting doctor made her feel this way. She states she wants to leave now and will not stay for any further treatment. Patient then states that she cannot sleep at night is demanding that I prescribe her codeine cough syrup so she can help sleep at night. I informed her I do not feel comfortable with this and she should obtain all narcotics from her family care doctor. She was also informed that her thyroid was abnormal and is to follow-up with the family care doctor for this as she needs to have her Synthroid adjusted. The nurseLinda was present for this as the patient was yelling and screaming at me and threatening to nikko me. She was started on antibiotics. She is advised to follow-up tomorrow in the care doctor and for further evaluation and treatment for her slightly elevated TSH. She is advised not to take any more cold medicines or anything else that could increase the chance of her having another confusion episode. She was encouraged to return to the ER at anytime for further evaluation treatment, worsening signs or symptoms or as needed. Consultation: A consultation was placed with Dr. Sophia waller. The case was discussed and diagnostics were reviewed. The patient was evaluated in the ER for further treatment. Patient then refused admission. Patient left AMA in stable condition with her boyfriend. Medical Decision As above Head Trauma GCS Score: 15 Medication Reconcilliation Current Medication List: was personally reviewed by me Blood Pressure Screening Patient's blood pressure: Normal blood pressure Impression Primary Impression: Episodic confusion Additional Impression: Sinusitis Departure Information Dispostion Home / Self-Care Condition GOOD Prescriptions Amoxicillin & Pot Clavulanate (Augmentin 875-125 mg) 1 Tab Tab 1 TAB PO BID for 10 Days, #20 TAB Prov: Dorcas Edwards .NANNETTE 06/13/17 Referrals Servando Galvan M.D. (PCP) Forms WORK / SCHOOL INSTRUCTIONS, HOME CARE DOCUMENTATION FORM, IMPORTANT VISIT INFORMATION Patient Instructions My [facility] Additional Instructions You are leaving AGAINST MEDICAL ADVICE. Your increased risks of neurological problems, infection and/or . Amoxicillin Clavulanate (Augmentin) 875mg: Take one pill twice daily for 10 days for your infection. All antibiotics can cause diarrhea. If this occurs and you feel worse or it does not resolve in 1-2 days follow up with your doctor or return to the Emergency Department as this could be signs of serious underlying problems. Any medication can cause an allergic reaction, stop the pills immediately and return to the ER for rash, hives, breathing difficulties, or swelling. Acetaminophen(Tylenol) may be used for fever or pain. Use 1000mg every six hours as needed. Avoid using more than 3000mg in a 24 hour period. (AND/OR) Ibuprofen(Motrin, Advil) may be used for fever or pain. Use 600mg every six hours as needed. Take with food. Avoid using more than 2400mg in a 24 hour period. Do not use 2400mg per day for more than three consecutive days without physician direction. Prolonged inappropriate use can lead to stomach upset or ulcers. Rest and drink plenty of fluids. Controlling your fever with Tylenol and Ibuprofen as above will make you feel better. Wash your hands after nose blowing, sneezing, or coughing. Most germs are spread through contact, therefore improper hygiene may result in your close contacts and loved ones becoming ill just like you. Continue current medications. Return to the ER for severe headache, neck stiffness, chest pain, difficulty breathing, fevers, vomiting, worsening of your condition, or as needed. Follow up with your primary physician in 1-2 days for a recheck of your current condition. Problem Qualifiers
[2017-06-13] MEDS ORDERED: AMOX875T PO (04:02)
[2017-06-13 04:16] VITALS: BP 143/85; PULSE 86; O2SAT 96
--- NOTE | 2017-06-13 06:44 | DIAGNOSTIC IMAGING REPORT ---
HEAD WITHOUT CONTRAST (CT) CLINICAL HISTORY: 57 years-old Female with AMS. Acutely altered mental status. Patient is unresponsive. TECHNIQUE: Multiple axial CT images of the head were obtained without contrast. A dose lowering technique was utilized adhering to the principles of ALARA. CT DOSE: 537.48 mGy.cm COMPARISON: Head CT 12/11/2015. FINDINGS: No acute intracranial hemorrhage, midline shift, intracranial mass, hydrocephalus, territorial ischemia or abnormal extra-axial collection. Mild atherosclerotic plaquing of the cerebral vasculature at the level of the skull base. Unchanged 9 mm area of ovoid focal low-attenuation within the region of the inferior left lentiform nucleus, image 12 of series 2 suggests prominent perivascular space or less likely a remote lacunar infarction. The calvarium is intact. The mastoid air cells and middle ear cavities are clear. Severe mucosal thickening of the right maxillary sinus which is nearly completely opacified with air-fluid level. Moderate mucosal thickening of the right ethmoid air cells. IMPRESSION: 1. No acute intracranial abnormality. 2. Paranasal sinus disease with acute maxillary sinusitis. The above report was generated using voice recognition software. It may contain grammatical, syntax or spelling errors. Electronically signed by: Betito Mccoy M.D. 06/13/2017 6:43 AM Dictated Date/Time: 06/13/2017 6:40 AM
--- NOTE | 2017-06-13 07:03 | DIAGNOSTIC IMAGING REPORT ---
CHEST ONE VIEW PORTABLE CLINICAL HISTORY: Altered mental status. COMPARISON STUDY: Chest radiograph June 06, 2017. FINDINGS: Lung volumes are normal. There is no consolidation or evidence for pulmonary edema. No pneumothorax or pleural effusion is noted. Cardiomediastinal silhouette is normal. There is a healed left clavicular fracture. IMPRESSION: No acute cardiopulmonary findings. Electronically signed by: Keven Rodriguez M.D. 06/13/2017 7:02 AM Dictated Date/Time: 06/13/2017 7:02 AM
[2017-06-13] MEDS ORDERED: IV FLUIDS COMPLETED PRN (07:15)
== END 2017-06-13 04:18 | disposition left against medical advice (07) ==
LOC: C.EDA 01:56 → CANBEDREQ 03:58 → C.EDA 04:18
DX: F44.89 Other dissociative and conversion disorders (principal); R44.1 Visual hallucinations; R94.6 Abnormal results of thyroid function studies; R05 Cough; R09.81 Nasal congestion; R40.2412 Glasgow coma scale score 13-15, at arrival to emergency department; Z87.891 Personal history of nicotine dependence; Z83.3 Family history of diabetes mellitus; Z82.49 Family history of ischemic heart disease and other diseases of the circulatory system; Z83.79 Family history of other diseases of the digestive system; Z84.1 Family history of disorders of kidney and ureter; Z83.6 Family history of other diseases of the respiratory system

== ENCOUNTER 2017-06-14 11:33 | Emergency (ER) | payer OTHER ==
[~2017-06-14 11:33] MED LIST changes: +AMOX875T PO
[2017-06-14 11:39] VITALS: Ht 157.5 cm
[2017-06-14 12:56] VITALS: TEMP 37
[2017-06-14 13:02] LABS: BASO % 0.1 %; BASO ABS # 0.01 K/uL (0-0.2); EOS % 0.4 %; EOS ABS # 0.04 K/uL (0-0.5); HEMATOCRIT 40.3 % (37-47); HEMOGLOBIN 14.3 g/dL (12.0-16.0); IG# 0.01 K/uL (0.00-0.02); LYMPH % 16.9 %; LYMPH ABS # 1.58 K/uL (1.2-3.4); MEAN CELL VOLUME 88.2 fL (80-100); MEAN CORPUSCULAR HEMOGLOBIN 31.3 pg (25-34); MEAN CORPUSCULAR HGB CONC 35.5 g/dl (32-36); MEAN PLATELET VOLUME 9.9 fL (7.4-10.4); MONO % 7.7 %; MONO ABS # 0.72 K/uL (0.11-0.59); NEUT % 74.8 %; PLATELET COUNT 287 K/uL (130-400); RED CELL DISTRIBUTION WIDTH CV 13.1 % (11.5-14.5); RED CELL DISTRIBUTION WIDTH SD 42.4 fL (36.4-46.3); WHITE BLOOD COUNT 9.36 K/uL (4.8-10.8)
[2017-06-14 13:20] LABS: ALBUMIN 3.9 gm/dl (3.4-5.0); ALT/SGPT 30 U/L (12-78); AST/SGOT 23 U/L (15-37); BLOOD UREA NITROGEN 11 mg/dl (7-18); CALCIUM 9.7 mg/dl (8.5-10.1); CARBON DIOXIDE 25 mmol/L (21-32); CREATININE 0.88 mg/dl (0.60-1.20); GLUCOSE 106 mg/dl (70-99); POTASSIUM 3.7 mmol/L (3.5-5.1); SODIUM 139 mmol/L (136-145)
[2017-06-14 13:32] LABS: ALKALINE PHOSPHATASE 97 U/L (45-117)
[2017-06-14] MEDS ORDERED: CLONAZEPAM 0.5 MG TAB PO STA ×2 (14:53→17:17)
--- NOTE | 2017-06-14 15:12 | EMERGENCY ROOM VISIT NOTE ---
History Report prepared by Jer: Barry Caba Under the Supervision of: Dr. Juan Carlos De Guzman M.D. First contact with patient: 12:29 Chief Complaint: MENTAL HEALTH EVALUATION Stated Complaint: MENTAL HEALTH History of Present Illness The patient is a 57 year old female who presents to the Emergency Room with complaints of intermittent anxiety attacks beginning a week ago. The patient is accompanied by her boyfriend who states that the patient has been having difficulties with anxiety attacks for a week. He reports the patient has been stressed out recently due roommate issues and misplacing her medications. The patient reports she has been taking Klonopin and Prozac as needed, but reports that she has not had any the last couple of days due to losing her medications. Her boyfriend reports the patient has been able to eat, but she has not been sleeping well. He states she was having an anxiety attack today, including symptoms such as twitching her eyes and hands. Per the patient's report, the police found the patient unresponsive in the parking lot, which caused them to call a code. Staff reported to the scene and got her out of her vehicle. The patient was found to have a good pulse and was responding to verbal commands, but she wouldn't talk. The patient states she is still stressed out. She reports that she has an appointment with her psychiatrist tomorrow. The patient states that she has also been experiencing a mild cough due to recently having influenza two weeks ago. The patient denies using alcohol, LOC, headache, fevers , chills, diaphoresis, visual changes, neck pain, chest pain, breathing difficulties, nausea, vomiting, abdominal pain, back pain, melena, hematochezia , urinary symptoms, numbness, weakness, lymphadenopathy, rash, or other complaints. Source of History: patient, spouse/significant other Onset: a week ago Position: other (global) Quality: other (global) Timing: intermittent Associated Symptoms: + cough Note: Associated symptoms: eye and hand twitching Review of Systems See HPI for pertinent positives and negatives. A total of ten systems were reviewed and were otherwise negative. Past Medical & Surgical Medical Problems: (1) Depression (2) Pneumonia (3) Syncope Surgical Problems: (1) H/O gastric bypass Family History Cancer Diabetes mellitus Gallbladder disease Heart disease Hypertension Kidney disease Kidney stones Lung disease Social History Smoking Status: Never Smoker Alcohol Use: other Marital Status: Housing Status: lives with significant other Occupation Status: unemployed Current/Historical Medications Scheduled Amoxicillin & Pot Clavulanate (Augmentin 875-125 mg), 1 TAB PO BID Fish Oil (Willow-3), 3 CAPSULES PO DAILY Fluoxetine Hcl (Prozac), 40 MG PO DAILY Levothyroxine Sodium (Levothyroxine Sodium), 50 MCG PO DAILY Pediatric Multiple Vitamin W/ (Flintstones Chewable), 2 TABS PO DAILY Topiramate (Topamax), 50 MG PO BID Scheduled PRN Acetaminophen (Tylenol), 1,000 MG PO Q6H PRN for Pain Clonazepam (Clonazepam), 0.5 MG PO BID PRN for Anxiety Tramadol HCl (Tramadol HCl), 50 MG PO Q6H PRN for Pain Allergies Coded Allergies: No Known Allergies (Verified , 06/14/17) Physical Exam Vital Signs Date Time Temp Pulse Resp B/P (MAP) Pulse Ox O2 Delivery O2 Flow Rate FiO2 06/14/17 18:07 84 20 160/90 96 06/14/17 14:13 100 18 151/97 98 Room Air 06/14/17 12:56 37.0 84 16 146/93 97 Room Air 06/14/17 12:20 94 06/14/17 11:39 37.4 88 20 137/78 96 Room Air Physical Exam GENERAL: Awake, alert, well appearing, no distress HENT: Normocephalic, atraumatic. TM's normal. Oropharynx unremarkable. EYES: PERRL. EOMI. Normal conjunctiva. Sclera non-icteric. NECK: Supple. No nuchal rigidity. FROM. No JVD or bruit. RESPIRATORY: CTA CARDIAC: RRR. No murmur. ABDOMEN: Soft, non distended. No tenderness to palpation. No rebound or guarding. No masses. MUSCULOSKELETAL: Unremarkable. No edema. No discoloration. Gross motor strength symmetric. NEURO: Cranial nerves 2-12 grossly intact. Normal sensorium. No sensory or motor deficits noted. Speech normal. No pronator drift. SKIN: No rash or jaundice noted. LYMPH: No adenopathy. PSYCH: Depressed mood. Flat affect. Minimal word answerers to question, but will nod yes or no right away to answer. Unable to asses for suicidal ideation. Medical Decision & Procedures Laboratory Results 06/14/17 12:43 Red Blood Count 4.57, Mean Corpuscular Volume 88.2, Mean Corpuscular Hemoglobin 31.3, Mean Corpuscular Hemoglobin Concent 35.5, Mean Platelet Volume 9.9, Neutrophils (%) (Auto) 74.8, Lymphocytes (%) (Auto) 16.9, Monocytes (%) (Auto) 7.7, Eosinophils (%) (Auto) 0.4, Basophils (%) (Auto) 0.1, Neutrophils # (Auto) 7.00, Lymphocytes # (Auto) 1.58, Monocytes # (Auto) 0.72, Eosinophils # (Auto) 0.04, Basophils # (Auto) 0.01 06/14/17 12:43 Test 06/14/17 00:00 06/14/17 12:43 Urine Color YELLOW Urine Appearance CLEAR (CLEAR) Urine pH 7.0 (4.5-7.5) Urine Specific [place] 1.004 (1.000-1.030) Urine Protein NEG (NEG) Urine Glucose (UA) NEG (NEG) Urine Ketones 1+ (NEG) Urine Occult Blood NEG (NEG) Urine Nitrite NEG (NEG) Urine Bilirubin NEG (NEG) Urine Urobilinogen NEG (NEG) Urine Leukocyte Esterase NEG (NEG) Urine Opiates Screen NEG (NEG) Urine Methadone, Qualitative NEG (NEG) Urine Barbiturates NEG (NEG) Urine Phencyclidine (PCP) Level NEG (NEG) Ur Amphetamine/Methamphetamine NEG (NEG) MDMA (Ecstasy) Screen NEG (NEG) Urine Benzodiazepines Screen NEG (NEG) Urine Cocaine Metabolite NEG (NEG) Urine Marijuana (THC) NEG (NEG) White Blood Count 9.36 K/uL (4.8-10.8) Red Blood Count 4.57 M/uL (4.2-5.4) Hemoglobin 14.3 g/dL (12.0-16.0) Hematocrit 40.3 % (37-47) Mean Corpuscular Volume 88.2 fL (80-100) Mean Corpuscular Hemoglobin 31.3 pg (25-34) Mean Corpuscular Hemoglobin Concent 35.5 g/dl (32-36) Platelet Count 287 K/uL (130-400) Mean Platelet Volume 9.9 fL (7.4-10.4) Neutrophils (%) (Auto) 74.8 % Lymphocytes (%) (Auto) 16.9 % Monocytes (%) (Auto) 7.7 % Eosinophils (%) (Auto) 0.4 % Basophils (%) (Auto) 0.1 % Neutrophils # (Auto) 7.00 K/uL (1.4-6.5) Lymphocytes # (Auto) 1.58 K/uL (1.2-3.4) Monocytes # (Auto) 0.72 K/uL (0.11-0.59) Eosinophils # (Auto) 0.04 K/uL (0-0.5) Basophils # (Auto) 0.01 K/uL (0-0.2) RDW Standard Deviation 42.4 fL (36.4-46.3) RDW Coefficient of Variation 13.1 % (11.5-14.5) Immature Granulocyte % (Auto) 0.1 % Immature Granulocyte # (Auto) 0.01 K/uL (0.00-0.02) Anion Gap 9.0 mmol/L (3-11) Estimated GFR () 85.1 Estimated GFR (Non- 73.4 BUN/Creatinine Ratio 13.0 (10-20) Calcium Level 9.7 mg/dl (8.5-10.1) Total Bilirubin 0.6 mg/dl (0.2-1) Aspartate Amino Transf (AST/SGOT) 23 U/L (15-37) Alanine Aminotransferase (ALT/SGPT) 30 U/L (12-78) Alkaline Phosphatase 97 U/L (45-117) Total Protein 8.0 gm/dl (6.4-8.2) Albumin 3.9 gm/dl (3.4-5.0) Globulin 4.1 gm/dl (2.5-4.0) Albumin/Globulin Ratio 1.0 (0.9-2) Thyroid Stimulating Hormone (TSH) 4.360 uIu/ml (0.300-4.500) Salicylates Level < 1.7 mg/dl (2.8-20) Acetaminophen Level < 2 ug/ml (10-30) Ethyl Alcohol mg/dL < 3.0 mg/dl (0-3) Laboratory results reviewed by me Medications Administered Medications (Trade) Dose Ordered Sig/Krystle Route Start Time Stop Time Status Last Admin Dose Admin Clonazepam (Klonopin Tab) 1 mg NOW STAT PO 06/14/17 14:53 06/14/17 14:54 DC 06/14/17 15:27 1 MG Clonazepam (Klonopin Tab) 1.5 mg NOW STAT PO 06/14/17 17:17 06/14/17 17:19 DC 06/14/17 18:05 1.5 MG ECG Per My Interpretation Indication: altered mental status Rate (beats per minute): 93 Rhythm: sinus rhythm Findings: PAC, no acute ischemic change, other (Normal intervals) Change: Patient's electrocardiogram was interpreted by me. ED Course 1237: The patient was evaluated in room A05. A complete history and physical exam was performed. 1409: The patient is medically cleared. A referral will be made to maría costello. 1439: I reevaluated the patient and she is very anxious. She is having thoughts about leaving. I talked with her and told her I will give her a dose of Klonopin. Case management will continue to work on her. 1453: Ordered Klonopin Tab 1 mg PO. 1514: I reevaluated the patient and she reports she would like to go home against medical advice. I talked to her and she changed her mind and would like to stay. 1715: María costello declined. There was no suicidal/homicidal ideation after psychiatric consultation. She will follow up with psychiatry tomorrow. 1720: I reevaluated the patient. Discussed results and discharge instructions: She verbalized understanding and agreement. The patient is ready for discharge. 1717: Ordered Klonopin Tab 1.5 mg PO. Medical Decision Prior records/ancillary studies reviewed. Triage Nursing notes reviewed and agree them. Additional history obtained from the patient's boyfriend. The patient's history was concerning for possible psychiatric disturbance. Differential diagnosis: Etiologies such as mood disorder, infection, hypoglycemia, electrolyte abnormalities, cardiac sources, intracerebral event, toxicologic, neurologic, as well as others were entertained. Physical examination: The physical examination was performed as above and was completely benign. No emergent medical pathologies were noted. ER treatment provided: Observation Monitoring On reassessment the patient felt better. Oral Klonopin On reassessment the patient felt well. She desired discharge. Diagnostic interpretation by me: The electrocardiogram was negative for pathologic change. The labs revealed an unremarkable CBC and chemistry panel. Tox screen negative. Imaging studies: Deferred The patient was initially cooperative with voluntary psychiatric evaluation for possible admission. She then changed her mind and wanted to be discharged. After I met with her again the patient felt like she could entertain staying in the hospital. Consultation was made with psychiatry. Consultation was made with [address] [place] [address]. The patient was evaluated in the Emergency Room. She was doing much better and psychiatry felt admission was not necessary. The patient felt comfortable with outpatient follow-up. She was given three 0.5 mg doses of Klonopin to take home until she can see her treating physician for a refill of her home prescription. The patient was not suicidal or homicidal. If she worsens in any way she will be back. I gave my usual and customary discussion regarding this issue. By the evaluation outlined above other emergent etiologies such as those listed in the differential, as well as others, were deemed relatively unlikely. The patient was educated about the findings as listed above. All questions were answered and the patient was pleased with the treatment. Return instructions were outlined and the patient was discharged in stable condition. The patient was referred to her primary for follow-up for a recheck of the current condition. Medication Reconcilliation Current Medication List: was personally reviewed by me Blood Pressure Screening Patient's blood pressure: Elevated blood pressure Blood pressure disposition: Referred to PCP Impression Primary Impression: Mood disorder Scribe Attestation The scribe's documentation has been prepared under my direction and personally reviewed by me in its entirety. I confirm that the note above accurately reflects all work, treatment, procedures, and medical decision making performed by me. Departure Information Dispostion Home / Self-Care Referrals Servando Galvan M.D. (PCP) Forms HOME CARE DOCUMENTATION FORM, IMPORTANT VISIT INFORMATION Patient Instructions My [facility] Additional Instructions PSYCHIATRIC INSTRUCTIONS: Continue your current medications. Klonopin 0.5 mg: Take one every 8 hours as needed for anxiety. Do not drive if taking. Do not mix with alcohol. Return to the ER for severe anxiety or depression, thoughts of hurting yourself or others, inability to function, hallucinations, worsening of your condition, or as needed. Follow up with outpatient services in psychiatry/mental health as scheduled. Follow up with your primary care physician this week for a recheck of your current condition and continued care.
[2017-06-14] MEDS ORDERED: EMPTY 8 DRAM VIAL ONE (17:24)
[2017-06-14 18:07] VITALS: BP 160/90; PULSE 84; O2SAT 96
== END 2017-06-14 18:12 | disposition home or self-care (01) ==
LOC: C.EDB 11:34 → C.EDA 18:12
DX: F39 Unspecified mood [affective] disorder (principal); Z98.84 Bariatric surgery status; Z83.3 Family history of diabetes mellitus; Z82.49 Family history of ischemic heart disease and other diseases of the circulatory system; Z84.1 Family history of disorders of kidney and ureter